=== PATIENT | male | born 1950 | race Two or more races ===

== ENCOUNTER → 2019-06-01 | Outpatient (CLI) | payer MEDICARE | END | disposition home or self-care (01) | LOC: Rad HDHVI 12:56 | PROVIDERS: ATTEND Internal Medicine Cardiovascular Disease | DX: I08.8 Other rheumatic multiple valve diseases (principal); R00.2 Palpitations; I11.9 Hypertensive heart disease without heart failure | CPT/HCPCS: 93306; 93880 ==

== ENCOUNTER → 2019-06-06 | Outpatient (CLI) | payer MEDICARE ==
[~2019-06-06] VITALS: Ht 177.8 cm; Wt 83.9 kg
== END | disposition home or self-care (01) ==
LOC: Rad HDHVI 13:43
PROVIDERS: ATTEND Internal Medicine Cardiovascular Disease
DX: I48.91 Unspecified atrial fibrillation (principal); I10 Essential (primary) hypertension; E78.00 Pure hypercholesterolemia, unspecified; E11.9 Type 2 diabetes mellitus without complications
CPT/HCPCS: 78452; 93017; 96374; A9500

== ENCOUNTER → 2021-04-01 | Outpatient (CLI) | payer MEDICARE | END | disposition home or self-care (01) | LOC: Rad HDHVI 08:50 | PROVIDERS: ATTEND Internal Medicine Cardiovascular Disease | DX: I08.2 Rheumatic disorders of both aortic and tricuspid valves (principal); R00.2 Palpitations; R07.89 Other chest pain | CPT/HCPCS: 93306 ==

== ENCOUNTER → 2021-04-03 | Outpatient (CLI) | payer MEDICARE | END | disposition home or self-care (01) | LOC: Rad HDHVI 09:49 | PROVIDERS: ATTEND Internal Medicine Cardiovascular Disease | DX: I65.22 Occlusion and stenosis of left carotid artery (principal); I10 Essential (primary) hypertension; E78.5 Hyperlipidemia, unspecified | CPT/HCPCS: 93880 ==

== ENCOUNTER → 2021-04-11 | Outpatient (CLI) | payer MEDICARE ==
[~2021-04-11] VITALS: Ht 177.8 cm; Wt 81.6 kg
== END | disposition home or self-care (01) ==
LOC: Rad HDHVI 08:47
PROVIDERS: ATTEND Internal Medicine Cardiovascular Disease
DX: R06.02 Shortness of breath (principal); I10 Essential (primary) hypertension; R00.2 Palpitations; E11.42 Type 2 diabetes mellitus with diabetic polyneuropathy; E78.00 Pure hypercholesterolemia, unspecified; E78.5 Hyperlipidemia, unspecified
CPT/HCPCS: 78452; 93017; 96374; A9500

== ENCOUNTER → 2023-04-01 | Outpatient (CLI) | payer MEDICARE | END | disposition home or self-care (01) | LOC: Rad HDHVI 10:35 | PROVIDERS: ATTEND Internal Medicine Cardiovascular Disease | DX: I08.8 Other rheumatic multiple valve diseases (principal); R00.2 Palpitations; I11.9 Hypertensive heart disease without heart failure | CPT/HCPCS: 93306 ==

== ENCOUNTER → 2024-08-10 | Outpatient (CLI) | payer MEDICARE | END | disposition home or self-care (01) | LOC: Rad HDHVI 09:51 | PROVIDERS: ATTEND Internal Medicine Cardiovascular Disease | DX: I10 Essential (primary) hypertension (principal); R07.89 Other chest pain | CPT/HCPCS: 93306; 93880 ==

== ENCOUNTER → 2024-11-02 | Outpatient (CLI) | payer MEDICARE ==
[~2024-11-02] VITALS: Ht 177.8 cm; Wt 77.1 kg
== END | disposition home or self-care (01) ==
LOC: Rad HDHVI 09:10
PROVIDERS: ATTEND Internal Medicine Cardiovascular Disease
DX: I11.0 Hypertensive heart disease with heart failure (principal); I50.33 Acute on chronic diastolic (congestive) heart failure; E78.5 Hyperlipidemia, unspecified; E11.40 Type 2 diabetes mellitus with diabetic neuropathy, unspecified; Z86.69 Personal history of other diseases of the nervous system and sense organs; Z82.49 Family history of ischemic heart disease and other diseases of the circulatory system
CPT/HCPCS: 78452; 93017; 96374; A9500

== ENCOUNTER → 2024-11-15 | Outpatient (CLI) | payer MEDICARE ==
[~2024-11-15] MED LIST: ALPR0.254 PO; ASPI325T6 PO; ATEN-60 PO; CHOL100079 OR; CYAN1TAB11 PO; EMPA1TAB3 PO; LIDOCAINE 2%HCL (LOCAL ANESTH.) INJ 10ml MDV ONE; LIDOCAINE 2%HCL (LOCAL ANESTH.) INJ 20ML MDV ONE; LOSA-534 PO; MAGN250T8 PO; METF-370 PO; MIDAZOLAM HCL 2MG/2ML 2ml VIAL (1mg/ml) ONE; SIMV40TA18 PO; VANCOMYCIN 1GM/250ML KIT 250 ML IV ONE; fentaNYL CITRATE 100 MCG/2 ML VL ONE
[2024-11-15 09:00] VITALS: BP 137/70; PULSE 77; RESP 18; O2SAT 94
[2024-11-15 09:10] VITALS: BP 128/69; PULSE 75; RESP 16; O2SAT 94
--- NOTE | 2024-11-15 12:54 | DVH ---
EXAM: XY CHEST TWO VIEWS ROUTINE CLINICAL HISTORY: Pain COMPARISON: XY CHEST TWO VIEWS ROUTINE on DOS: 03/20/23 TECHNIQUE: Frontal and lateral view of the chest was obtained FINDINGS: Lines and Tubes: None Lungs: No focal consolidation. Pleura: No effusion. No pneumothorax. Cardiomediastinal contours: Unremarkable. Atherosclerotic vascular calcifications of the thoracic aor ta are noted. Bones: No acute osseous abnormality. IMPRESSION: No acute cardiopulmonary disease.
== END | disposition home or self-care (01) ==
LOC: Rad HDHVI 08:50
PROVIDERS: ATTEND Internal Medicine Cardiovascular Disease
DX: Z01.818 Encounter for other preprocedural examination (principal); I51.7 Cardiomegaly; R00.1 Bradycardia, unspecified; I70.0 Atherosclerosis of aorta
CPT/HCPCS: 36415; 71046; 80048; 83036; 85025; 85610; 85730; 93005; G0463; J2003; J2250

== ENCOUNTER 2024-11-17 06:14 | Day surgery (SDC) | payer MEDICARE ==
[2024-11-15 11:30] LABS: Basophils # (auto) 0 10 ^3/uL (0-0.2); Basophils % (auto) 0.3 % (0.0-2.0); Eosinophils # (auto) 0.1 10 ^3/uL (0-0.8); Eosinophils % (auto) 1.2 % (0.0-7.0); Hematocrit 47.7 % (41.0-53.0); Hemoglobin 16.2 g/dL (13.5-17.5); Lymphocytes # (auto) 1.6 10 ^3/uL (0.4-5.4); Lymphocytes % (auto) 22.6 % (10.0-50.0); Mean Corpuscular Hemoglobin 30.1 pg (28.0-32.0); Mean Corpuscular Volume 88.5 fL (80.0-100.0); Monocytes # (auto) 0.7 10 ^3/uL (0-1.3); Monocytes % (auto) 10.2 % (0.0-12.0); Neutrophils # (auto) 4.6 10 ^3/uL (1.6-8.6); Neutrophils % (auto) 65.7 % (37.0-80.0); Nucleated Red Blood Cells % 0.1 %; Platelet Count (auto) 227 10^3/uL (140-450); Red Blood Cells 5.39 10^6/uL (4.5-5.90); Red Cell Distribution Width 14.1 % (11.8-14.3)
[2024-11-15 11:54] LABS: INR 0.97 (0.9-1.15); Partial Thromboplastin Time 26.7 SEC (24.5-34.5); Prothrombin Time 10.3 sec (9.3-11.8)
[2024-11-15 12:00] LABS: Chloride 106 mmol/L (98-107); Potassium 4.4 mmol/L (3.5-5.1); Sodium 141 mmol/L (136-145)
[2024-11-15 12:01] LABS: Anion Gap 6 (5-15); Carbon Dioxide 29 mmol/L (20-31)
[2024-11-15 12:02] LABS: Calcium 10.3 mg/dL (8.7-10.4)
[2024-11-15 12:06] LABS: BUN/Creatinine Ratio 15.7 (10.0-20.0); Blood Urea Nitrogen 14 mg/dL (9-23)
[2024-11-15 12:17] LABS: Glucose 109 mg/dL (74-106)
[~2024-11-17] VITALS: Ht 177.8 cm; Wt 78.0 kg
[~2024-11-17 06:14] MED LIST changes: -LIDOCAINE 2%HCL (LOCAL ANESTH.) INJ 10ml MDV ONE; -LIDOCAINE 2%HCL (LOCAL ANESTH.) INJ 20ML MDV ONE; -MIDAZOLAM HCL 2MG/2ML 2ml VIAL (1mg/ml) ONE; -VANCOMYCIN 1GM/250ML KIT 250 ML IV ONE; -fentaNYL CITRATE 100 MCG/2 ML VL ONE
[2024-11-17] MEDS ORDERED: fentaNYL CITRATE 100 MCG/2 ML VL ONE (07:58)
[2024-11-17] MEDS ORDERED: LIDOCAINE 2%HCL (LOCAL ANESTH.) INJ 20ML MDV ONE (07:59)
[2024-11-17] MEDS ORDERED: MIDAZOLAM HCL 2MG/2ML 2ml VIAL (1mg/ml) ONE (07:59)
[2024-11-17] MEDS ORDERED: VANCOMYCIN HCL 1000 MG VL ONE (08:12)
--- NOTE | 2024-11-17 10:51 | DVH ---
CHEST RADIOGRAPH Indication: S/P PACEMAKER Technique: Single frontal view of the chest was obtained Comparison: None FINDINGS: Lines and Tubes: Left pacemaker. Lungs: No focal consolidation. Pleura: No effusion. No pneumothorax. Cardiomediastinal contours: Unremarkable Bones: No acute osseous abnormality. IMPRESSION: No acute cardiopulmonary disease.
--- NOTE | 2024-11-17 10:58 | DVHHP ---
ADMIT DATE: 11/17/2024 HISTORY OF PRESENT ILLNESS: The patient is 73 years old with history of diabetes, history of hypertension, history of palpitation with PVCs. Now with beta lori and blood pressure is under excellent control and also the patient's blood sugars are under excellent control. He had coronary artery disease. Three brothers and father had coronary artery disease and father had a stroke as well. He had angiogram with angioplasty in 2012. PERTINENT MEDICAL HISTORY: Significant for hypertension, hyperlipidemia, history of diabetes with diabetic neuropathy, vasculopathy, nephropathy. Denies any tobacco use. Denies any drug use. REVIEW OF SYSTEMS: Negative for any bleeding diathesis, hematemesis, hemoptysis, melena, hematochezia, or hematuria. He denies any liver disease. No history of alcohol use. Denies any inflammatory bowel disease or irritable bowel syndrome. Denies any kidney disease at this time, even though he is diabetic. Denies any syncopal episode. No CVA. No movement disorder. Denies any GI symptomatology at this time. No history of any lung disease such as COPD or asthma or reactive airway disease. PHYSICAL EXAMINATION: VITAL SIGNS: Blood pressure is 134/76, pulse of 50 and regular, O2 saturation 96% on room air. HEENT: Pupils are reactive. Funduscopic exam shows no AV nicking, no exudates, no papilledema. Sclerae are anicteric. Extraocular muscles are intact. No cervical adenopathy, no supraclavicular adenopathy. Mucous membranes are moist. Posterior pharynx without any exudates. No nuchal rigidity appreciated. Thyroid is within normal limits. PULMONARY: Clear to auscultation. CARDIOVASCULAR: Regular rate without S3, without S4. PMI is not displaced. 2/6 systolic murmur along the left sternal border. ABDOMEN: Soft, nontender, normal bowel sounds. No epigastric tenderness, no suprapubic tenderness, no CVA tenderness. Stool guaiac is negative. EXTREMITIES: 1+ pulses bilaterally. ASSESSMENT AND PLAN: Thus, the patient with coronary artery disease, now with tachybrady episodes, mild bradycardia with pauses, will require a permanent pacemaker implantation. EF is within normal limits. Therefore, the patient will require distal regular dual chamber permanent pacemaker. I will make further recommendations after. Heraclio Cruz MD SA/DANE TID: [id number] RECEIPT: [id number]
--- NOTE | 2024-11-17 11:05 | ECG ---
[facility] Test Date: 2024-11-17 Test Time: 11:00:44 Pat Name: CARMEN MAE Department: Room: Gender: M Rehab Aid: MALA : 1950 Requested By: MI CARRERA Order Number: [id number] Reading MD: Measurements Intervals [place] Rate: 60 P: 57 MI: 154 QRS: -56 QRSD: 98 T: 19 QT: 418 QTc: 418 Interpretive Statements Electronic atrial pacemaker Left anterior fascicular block Please click the below link to view image of tracing.
--- NOTE | 2024-11-17 11:13 | DVHDS ---
DATE OF DISCHARGE: 11/17/2024 DISCHARGE DIAGNOSES: Sick sinus syndrome, pauses greater than 3 seconds. Now he underwent successful dual chamber permanent pacemaker implantation. The patient is clinically stable at this time, may be discharged home. PERTINENT MEDICAL HISTORY: Significant for diabetes, history of coronary artery disease, history of hyperlipidemia, history of hypertension. FOLLOWUP: Follow up with me in 1 week. Stable at the time of discharge. DISPOSITION: Home. ACTIVITY: As instructed. DIET: Will be 2 gram sodium, 1800-calorie ADA diet. Heraclio Cruz MD SA/ALFONSO TID: [id number] RECEIPT: [id number]
--- NOTE | 2024-11-17 11:15 | DVHOP ---
DATE OF SURGERY: 11/17/2024 PROCEDURE PERFORMED: * Venography. * Dual-chamber permanent pacemaker implantation. * Conscious sedation. DESCRIPTION OF PROCEDURE: The patient was prepped and draped in a sterile condition. 1% Xylocaine used to anesthetize the left subclavicular region following venography. Using a Cook needle, the left subclavian vein was engaged with Seldinger technique, a guidewire was then appropriately positioned. Using a 10 blade, linear incision was made using blunt dissection and electrocautery, pocket was then dissected out. Using a 9-Turkish peel-away sheath, right ventricular active fixation lead then appropriately positioned, threshold parameters obtained, lead was secured to the chest wall using 0 Ethibond. Similarly using a 7-Turkish peel-away sheath, the right atrial active fixation lead then appropriately positioned, threshold parameters obtained, lead was secured to the chest wall using 0 Ethibond. Generator was implanted. Pocket was irrigated using vancomycin saline solution. Pocket was closed using 3-0 Monoderm subcutaneous sutures followed by 3-0 Monoderm subcuticular sutures. There were no complications. The patient tolerated the procedure well. RESULTS: The patient had an MRI compatible Biotronik dual-chamber permanent pacemaker, Edora 8 DR-T, model #640125, serial #[id number]. RV lead is Solia S53, model #008239, serial #[id number]. Atrial lead is Solia S45, model #104811, serial #[id number]. Threshold parameters atrium, P-wave amplitude of 2.2 millivolts, threshold 0.7 volts at 0.4 milliseconds pulse duration, pacing impedance of 1150 ohms. Right ventricular lead, R-wave amplitude 6.2 millivolts, threshold 0.6 volts at 0.4 milliseconds pulse duration, pacing impedance of 820 ohms. CONCLUSION: The patient has successful implantation of Biotronik MRI compatible dual-chamber permanent pacemaker. Heraclio Cruz MD SA/GENET TID: [id number] RECEIPT: [id number]
== END 2024-11-17 12:34 | disposition home or self-care (01) ==
LOC: CATH 06:14
PROVIDERS: ATTEND Internal Medicine Cardiovascular Disease
DX: I49.5 Sick sinus syndrome (principal); E78.5 Hyperlipidemia, unspecified; R79.1 Abnormal coagulation profile; I44.30 Unspecified atrioventricular block; I25.10 Atherosclerotic heart disease of native coronary artery without angina pectoris; E11.9 Type 2 diabetes mellitus without complications; I10 Essential (primary) hypertension; I44.4 Left anterior fascicular block; Z82.49 Family history of ischemic heart disease and other diseases of the circulatory system; Z95.0 Presence of cardiac pacemaker
CPT/HCPCS: 33208; 36415; 71045; 80048; 83036; 85025; 85610; 85730; 93005; C1785; J2003; J2250; J3010; J3370; 99152